=== PATIENT | male | born 1950 | race Caucasian/White ===

== ENCOUNTER 2016-05-03 18:21 | Emergency (ER) | payer MEDICARE, BC ==
[2016-05-03 18:33] VITALS: BP 144/82
--- NOTE | 2016-05-03 18:48 | ERNOTE ---
Abdominal HPI - Narrative Date of Service: 05/03/16 - General Chief Complaint: Abdominal Pain Time Seen by Provider: 05/03/16 18:38 Source: patient, family Exam Limitations: no limitations - Immun/Allergies/Home Medications Immunizatons: IMMUNIZATION HX Immunizations Up to Date Yes History of Influenza Vaccine Yes Allergies/Adverse Reactions: Allergies Penicillins Allergy (Severe, Verified 05/03/16 18:33) Hives Home Medications: HOME MEDICATIONS Carvedilol [Coreg] 25 mg PO BID 11/30/13 [Last Taken 07/10/14] Levothyroxine Sodium [Synthroid] 88 mcg PO DAILY 11/30/13 [Last Taken 07/10/14] Rosuvastatin Calcium [Crestor] 20 mg PO DAILY 11/30/13 [Last Taken 07/10/14] Amlodipine Besylate/Benazepril [Lotrel 5-20 mg Capsule] 2 cap PO DAILY 06/29/14 [Last Taken 07/10/14] Ciprofloxacin HCl [Cipro] 500 mg PO BID #20 tab 05/03/16 [Last Taken Unknown] Fenofibrate Nanocrystallized [Tricor] 145 mg PO HS 05/03/16 [Last Taken Unknown] Polyethylene Glycol 3350 [Miralax] 17 gm PO BID #510 gm 05/03/16 [Last Taken Unknown] Psyllium Seed (with Sugar) [Metamucil Powder] 2 tbs PO BID #1 bottle 05/03/16 [ Last Taken Unknown] - History of Present Illness Narrative: 7 days ago, developed RLQ stabbing abdominal pain associated at first with bright red blood in his urine, then rust colored urine, plus passing small amounts of hard formed stool. Improved, but a little pain still present through this week. Today the same pain became more severe again, this time with rust colored urine again. Timing: intermittent Quality: moderate, severe, stabbing Activities at Onset: none Modifying Factors - (Improves): Present: other - nothing Modifying Factors - (Worsens): Present: other - bending forward at the waist Associated Symptoms: Present: other Prior Abdominal Problems: Present: none Prior Treatment: Absent: recently seen, currently on antibiotics Review of Systems - Review of Systems Constitutional: Present: no symptoms reported EYE: Present: no symptoms reported ENT: Present: no symptoms reported Respiratory: Present: no symptoms reported Cardiology: Present: no symptoms reported Gastrointestinal/Abdominal: Present: See HPI Genitourinary: Present: See HPI Musculoskeletal: Present: no symptoms reported Skin: Present: no symptoms reported Neurological: Present: no symptoms reported Endocrine: Present: no symptoms reported Hematologic/Lymphatic: Present: no symptoms reported Psych: Present: no symptoms reported All Other Systems: All systems neg except as marked - Patient's Past Medical History Patient History - Medical: GERD, Hypothyroidism Patient History - Cancer: No Hx of Cancer Patient History - Surgical Procedures: No surgical history, T & A - Social History Living Situations: home Smoking Status: Never smoker Alcohol Use: none Drug Use: none Physical Exam - Physical Exam General Appearance: Present: wd/wn, alert, no apparent distress Eye Exam: Normal inspection: bilateral, PERRL: bilateral, EOMI: bilateral Ears, Nose, Throat: Present: normal ENT inspection, hearing decreased Neck: Present: normal inspection Respiratory: Present: no respiratory distress, normal breath sounds Cardiovascular/Chest: Present: regular rate, rhythm, no murmur Gastrointestinal/Abdominal: Present: normal bowel sounds, nontender, nondistended, soft, no organomegaly Back Exam: Present: normal inspection, no CVA tenderness, no vertebral tenderness Extremity Exam: Present: normal inspection, non-tender, no edema Neurological Exam: Present: alert, oriented, normal mood/affect Skin Exam: Present: normal color, warm/dry ED Progress - Results and Orders Patient's Lab Results:: I have reviewed the patient's lab results. - Vital Signs Patient's Vital Signs:: I have reviewed the patient's vital signs. Vital Signs: Vital Signs 05/03/16 18:28 Temperature 36.5 C Pulse Rate 66 Respiratory 18 Rate Blood Pressure 144/82 O2 Sat by Pulse 98 Oximetry - X-Ray X-Ray #1 X-Ray: abdomen Interpretation: Interp. by id - retained stool - CT/Ultrasound CT/Ultrasound Narrative: I have reviewed the CAT scan report, renal cysts, mild fecal retention, 16 mm stone in right renal pelvis. - Progress/Reassessment Chief Complaint: Abdominal Pain Progress:: Improved Departure - Departure Clinical Impression: Kidney stone on right side Constipation Qualifiers: Constipation type: slow transit constipation Qualified Code(s): K59.01 - Slow transit constipation Disposition: Home self-care Condition: Good Instructions: Kidney Stones, [id number], Constipation, Adult, [id number] Additional Instructions: Followup with your health care provider next week. You need a referral to a urologist about your kidney stone. Referrals: Lina Rutledge FNP [Primary Care Provider] - Prescriptions: Ciprofloxacin HCl [Cipro] 500 mg PO BID #20 tab Polyethylene Glycol 3350 [Miralax] 17 gm PO BID #510 gm Psyllium Seed (with Sugar) [Metamucil Powder] 2 tbs PO BID #1 bottle
[2016-05-03] MEDS ORDERED: MAGNESIUM CITRATE 300 ML BTL PO ONE ×2 (18:49→20:20)
[2016-05-03] MEDS ORDERED: BISACODYL 5 MG TABLET.DR PO ONE ×2 (18:49→20:20)
[2016-05-03] MEDS ORDERED: SENNOSIDES 8.6 MG TABLET PO ONE (18:49)
[2016-05-03] MEDS ORDERED: SENNOSIDES 8.6 MG TABLET ONE (18:57)
[2016-05-03] MEDS ORDERED: BISACODYL 5 MG TABLET.DR ONE (18:57)
[2016-05-03] MEDS ORDERED: MAGNESIUM CITRATE 300 ML BTL ONE ×2 (18:58→20:25)
[2016-05-03 19:08] LABS: Hematocrit 41.5 % (42.0-52.0); Hemoglobin 14.3 gm/dL (13.5-18.0); Mean Corpuscular Hemoglobin 31.4 pg (27-31); Mean Corpuscular Hgb Conc 34.5 g/dl (32-36); Mean Platelet Volume 9.1 fl (6.0-9.5); Neutrophil # 3.4 K/mm3 (1.3-6.0); Neutrophil % 60.7 % (42-75.0); Platelet Count 158 K/mm3 (150-450); Red Blood Count 4.56 M/mm3 (4.7-6.0); Red Cell Distribution Width 12.8 % (11.5-14.0); White Blood Count 5.6 K/mm3 (4.0-10.5)
[2016-05-03 19:19] LABS: Albumin * 3.7 gm/dl (3.4-5.0); Anion Gap 15.2 mmol/L (6.8-13.8); BUN/Creatinine Ratio 15.9 (9.0-21.6); Bilirubin, Total 0.2 mg/dL (0.0-1.1); Ca. Corrected For Albumin 8.7 mg/dL (8.4-10.2); Calcium * 8.8 mg/dL (7.9-10.9); Potassium 4.2 mmol/L (3.4-4.6); Total Protein 7.2 gm/dL (6.2-8.2)
[2016-05-03 19:38] LABS: Urine Appearance Cloudy; Urine Bilirubin 1 mg/dl (NEGATIVE); Urine Color Amber
[2016-05-03 19:39] LABS: Urine Blood 250 /ul (NEGATIVE); Urine Ketone Negative (NEGATIVE); Urine Nitrite Negative (NEGATIVE); Urine Protein 100 mg/dL (NEGATIVE); Urine Urobilinogen Normal (NORMAL); Urine pH 5.5 pH (5.0-7.0)
[2016-05-03 19:42] LABS: Urine Amorphous Sediment Many - 3+ (NONE-FEW); Urine Bacteria 1+; Urine RBC >50 /hpf (0-5); Urine WBC 0-5 /hpf (0-5)
[2016-05-03] MEDS ORDERED: CIPROFLOXACIN HCL 250 MG TABLET PO ONE (21:18)
[2016-05-03] MEDS ORDERED: CIPROFLOXACIN HCL 250 MG TABLET ONE (21:20)
== END 2016-05-03 21:32 | disposition home or self-care (01) ==
LOC: ER 18:21
DX: N20.0 Calculus of kidney (principal); K59.01 Slow transit constipation

== ENCOUNTER 2016-12-29 09:47 | Emergency (ER) | payer MEDICARE, BC ==
--- NOTE | 2016-12-29 10:26 | ERNOTE ---
Medical Problem HPI - General Chief Complaint: General Assessment Time Seen by Provider: 12/29/16 10:04 Source: patient Exam Limitations: no limitations - Immun/Allergies/Home Medications Immunizations: IMMUNIZATION HX Immunizations Up to Date Yes History of Influenza Vaccine Yes Allergies/Adverse Reactions: Allergies Penicillins Allergy (Severe, Verified 12/29/16 09:53) Hives Home Medications: HOME MEDICATIONS Carvedilol [Coreg] 25 mg PO BID 11/30/13 [Last Taken 07/10/14] Levothyroxine Sodium [Synthroid] 88 mcg PO DAILY 11/30/13 [Last Taken 07/10/14] Rosuvastatin Calcium [Crestor] 20 mg PO DAILY 11/30/13 [Last Taken 07/10/14] Amlodipine Besylate/Benazepril [Lotrel 5-20 mg Capsule] 2 cap PO DAILY 06/29/14 [Last Taken 07/10/14] Fenofibrate Nanocrystallized [Tricor] 145 mg PO HS 05/03/16 [Last Taken Unknown] Omeprazole 40 mg PO DAILY 12/29/16 [Last Taken Unknown] - History of Present History Narrative: Patient states that for the past week or so he's been somewhat short of breath, however he is also noticed is even taking his vital signs that his pulse rate is regular in all way down to 35. While his blood pressure remains fairly stable at that time at 118/74 feels as though he does not have a whole lot of energy at this point. Patient denies any cough denies any neck pain, arm or jaw pain, shortness of breath or diaphoresis. Timing: intermittent Severity: mild Review of Systems - Review of Systems Constitutional: Present: See HPI EYE: Present: no symptoms reported ENT: Present: no symptoms reported Respiratory: Present: shortness of breath Cardiology: Present: other Gastrointestinal/Abdominal: Present: no symptoms reported Genitourinary: Present: no symptoms reported Musculoskeletal: Present: no symptoms reported Skin: Present: no symptoms reported Neurological: Present: no symptoms reported Endocrine: Present: no symptoms reported Hematologic/Lymphatic: Present: no symptoms reported Psych: Present: no symptoms reported - Patient's Past Medical History Patient History - Medical: GERD, Hypothyroidism Patient History - Cardiac/Respiratory: Arrhythmias, Hypertension, Hyperlipidemia Patient History - Cancer: No Hx of Cancer Patient History - Surgical Procedures: No surgical history, T & A - Social History Living Situations: home Alcohol Use: none Drug Use: none - Immunizations Immunizations Up to Date: Yes History of Influenza Vaccine: Yes Physical Exam - Physical Exam General Appearance: Present: wd/wn, alert, no apparent distress Head Exam: Present: normal inspection Eye Exam: Normal inspection: bilateral, PERRL: bilateral Ears, Nose, Throat: Present: normal ENT inspection, H, normal pharynx Neck: Present: normal inspection, nontender Respiratory: Present: no respiratory distress, normal breath sounds, no accessory muscle use, chest nontender, lungs clear Cardiovascular/Chest: Present: no murmur, normal peripheral pulses, bradycardia Gastrointestinal/Abdominal: Present: normal bowel sounds, nontender, nondistended, soft, no organomegaly Rectal Exam: Present: deferred Back Exam: Present: normal inspection, normal range of motion Extremity Exam: Present: normal inspection, non-tender, no edema, normal range of motion Neurological Exam: Present: alert, oriented, normal mood/affect Skin Exam: Present: normal color, warm/dry Lymphatic Exam: Present: no adenopathy ED Progress - Results and Orders Patient's Lab Results:: I have reviewed the patient's lab results. - Vital Signs Patient's Vital Signs:: I have reviewed the patient's vital signs. Vital Signs: Vital Signs 12/29/16 12/29/16 09:49 10:03 Temperature 36.0 C L Pulse Rate 68 74 Respiratory 12 16 Rate Blood Pressure 157/70 134/88 O2 Sat by Pulse 95 95 Oximetry - EKG EKG: other - X-Ray X-Ray #1 X-Ray: chest Interpretation: Reviewed by me - Progress/Reassessment Chief Complaint: General Assessment Plan - Plan Plan: Patient seems to notice that when his heart rate goes down to 35, I suspect from his Coreg, he runs out of energy and is unable to function very well. I believe this is medically induced dyspnea from his beta raymundo and I suggested that he cut his Coreg in half from 25 mg to 12.5 mg. He was instructed to call his wallpaper scraper to make sure that this is copacetic with him and he is discharged in stable condition. Departure - Departure Clinical Impression: Medication adverse effect Qualifiers: Encounter type: initial encounter Qualified Code(s): T88.7XXA - Unspecified adverse effect of drug or medicament, initial encounter Instructions: Basics of Medicine Management Additional Instructions: Please cut your Coreg in half and continued take the medications as directed twice daily. Call your wallpaper scraper to keep them apprised of your current situation. Referrals: Lina Rutledge FNP [Primary Care Provider] -
[2016-12-29 11:03] LABS: ALT 21 U/L (19-67); AST 16 U/L (0-48); Albumin * 3.7 gm/dl (3.4-5.0); Alkaline Phosphatase * 90 U/L (50-170); Anion Gap 15.3 mmol/L (6.8-13.8); BUN/Creatinine Ratio 15.6 (9.0-21.6); Bilirubin, Total 0.4 mg/dL (0.0-1.1); Blood Urea Nitrogen 20 mg/dL (6-23); Ca. Corrected For Albumin 8.6 mg/dL (8.4-10.2); Calcium * 8.7 mg/dL (7.9-10.9); Carbon Dioxide 23.8 mmol/L (24-32.6); Chloride 104 mmol/L (97-106); Glucose * 124 mg/dL (70-110); Magnesium 1.8 mg/dL (1.2-2.8); Potassium 4.1 mmol/L (3.4-4.6); Sodium 139 mmol/L (132-142); Total Protein 7.3 gm/dL (6.2-8.2)
[2016-12-29 11:05] LABS: Troponin I Less than 0.017 ng/ml (0.00-0.10)
[2016-12-29 11:21] LABS: Hematocrit 41.7 % (42.0-52.0); Hemoglobin 14.5 gm/dL (13.5-18.0); Mean Cell Volume 90.3 fl (78-100); Mean Corpuscular Hemoglobin 31.4 pg (27-31); Mean Corpuscular Hgb Conc 34.8 g/dl (32-36); Mean Platelet Volume 9.5 fl (6.0-9.5); Neutrophil # 3.4 K/mm3 (1.3-6.0); Neutrophil % 60.2 % (42-75.0); Platelet Count 161 K/mm3 (150-450); Red Blood Count 4.62 M/mm3 (4.7-6.0); Red Cell Distribution Width 12.9 % (11.5-14.0); White Blood Count 5.6 K/mm3 (4.0-10.5)
[2016-12-29 12:47] VITALS: BP 107/69
== END 2016-12-29 12:47 | disposition home or self-care (01) ==
LOC: ER 09:47
DX: T88.7XXA Unspecified adverse effect of drug or medicament, initial encounter (principal); E03.9 Hypothyroidism, unspecified; E78.5 Hyperlipidemia, unspecified; I10 Essential (primary) hypertension; K21.9 Gastro-esophageal reflux disease without esophagitis